=== PATIENT | male | born 1985 | race Two or more races ===

== ENCOUNTER 2019-04-08 17:42 | Emergency (ER) | payer MEDICAID ==
[~2019-04-08] VITALS: Ht 162.6 cm; Wt 90.9 kg
[2019-04-08] MEDS ORDERED: OLAN10TA3 PO (18:40)
[2019-04-08] MEDS ORDERED: DIPH25 PO (18:40)
[2019-04-08] MEDS ORDERED: LORA-1001 PO (18:40)
[2019-04-08] MEDS ORDERED: FLUO-191 PO (18:40)
[2019-04-08] MEDS ORDERED: HALO5TAB2 PO (18:40)
[2019-04-08] MEDS ORDERED: FISH1 PO (18:40)
[2019-04-08 19:16] LABS: BASOPHILS % (AUTO) 0.5 % (0.0-2.0); EOSINOPHILS % (AUTO) 6.4 % (1.0-6.0); HEMATOCRIT 42.9 % (41-53); HEMOGLOBIN 14.6 g/dL (13.5-17.5); LYMPHOCYTES # (AUTO) 1.7 K/uL (1.0-4.8); MEAN CORPUSCULAR HEMOGLOBIN 28.8 pg (26.0-34.0); MEAN CORPUSCULAR HGB CONC 34.1 G/dL (31.0-37.0); MEAN CORPUSCULAR VOLUME 84 fL (80-100); MONOCYTES # (AUTO) 0.9 K/uL (0.1-1.0); MONOCYTES % (AUTO) 10.6 % (2.0-9.0); NEUTROPHILS # (AUTO) 5.5 K/uL (1.8-7.7); NEUTROPHILS % (AUTO) 63.5 % (40.0-70.0); PLATELET COUNT (AUTO) 315 K/uL (150-450); RED BLOOD CELL COUNT(AUTO) 5.08 MIL/uL (4.50-5.90); RED CELL DISTRIBUTION WIDTH 13.5 % (11.5-14.5)
[2019-04-08 19:21] LABS: ANION GAP 9 mmol/L (8-16); CALCIUM, TOTAL 9.3 mg/dL (8.8-10.5); CARBON DIOXIDE 27 mmol/L (22-29); CHLORIDE 105 mmol/L (98-107); CREATININE 0.92 mg/dL (0.60-1.30); GLOMERULAR FILTR. RATE CALC > 60 mL/min (>60); GLUCOSE,RANDOM 107 mg/dL (70-110); POTASSIUM 3.8 mmol/L (3.5-5.1); SODIUM SERUM 141 mmol/L (136-145); UREA NITROGEN, BLOOD 15 mg/dL (7-18)
[2019-04-08 19:28] LABS: ALANINE AMINOTRANSFERASE 82 U/L (12-78); ALBUMIN 3.8 g/dL (3.4-5.0); ALKALINE PHOSPHATASE 178 U/L (46-116); ASPARTATE AMINOTRANSFERASE 36 U/L (15-37); BILIRUBIN,TOTAL 0.5 mg/dL (0.1-1.0); TOTAL PROTEIN, SERUM 7.6 g/dL (6.4-8.2)
[2019-04-08 19:30] LABS: PROTHROMBIN TIME 10.1 SEC (9.4-11.6)
[2019-04-08 20:37] LABS: PLATELET MORPHOLOGY COMMENT LARGE PLTS PRESENT
[2019-04-08 21:02] VITALS: BP 129/77
== END 2019-04-08 21:51 | disposition home or self-care (01) ==
LOC: EMS 17:47
DX: S31.21XA Laceration without foreign body of penis, initial encounter (principal); S30.812A Abrasion of penis, initial encounter; X58.XXXA Exposure to other specified factors, initial encounter; Y93.89 Activity, other specified; Y92.89 Other specified places as the place of occurrence of the external cause; Y99.8 Other external cause status
CPT/HCPCS: 12001